=== PATIENT | male | born 1995 | race Two or more races ===

== ENCOUNTER 2017-01-28 22:18 | Emergency (ER) | payer BC ==
[2017-01-28] MEDS ORDERED: Albuterol/Ipratropium 3.0-0.5 MG/3 ML Neb Soln NEB ONE (22:38)
[2017-01-28] MEDS ORDERED: predniSONE 20 MG Tab PO ONE (22:38)
--- NOTE | 2017-01-28 22:41 | EDM.PDOC ---
ED HPI GENERAL MEDICAL PROBLEM - General Chief Complaint: Respiratory Problem Stated Complaint: ASTHMA Time Seen by Provider: 01/28/17 22:39 - History of Present Illness INITIAL COMMENTS - FREE TEXT/NARRATIVE: HISTORY AND PHYSICAL: History of present illness: Patient is 21-year-old male history of asthma she states shortness of breath and wheezing he denies chest pain or other concerns he states he's run out of medications but does have a prescription plan and getting inhaler tomorrow Review of systems: As per history of present illness and below otherwise all systems reviewed and negative. Past medical history: As per history of present illness and as reviewed below otherwise noncontributory. Surgical history: As per history of present illness and as reviewed below otherwise noncontributory. Social history: No reported history of drug or alcohol abuse. Family history: As per history of present illness and as reviewed below otherwise noncontributory. Physical exam: HEENT: Atraumatic, normocephalic, pupils reactive, negative for conjunctival pallor or scleral icterus, mucous membranes moist, throat clear, neck supple, nontender, trachea midline. Lungs: Diffuse end expiratory wheezing no rhonchi no crackle, breath sounds equal bilaterally, chest nontender. Heart: S1S2, regular, negative for clicks, rubs, or JVD. Abdomen: Soft, nondistended, nontender. Negative for masses or hepatosplenomegaly. Negative for costovertebral tenderness. Pelvis: Stable nontender. Genitourinary: Deferred. Rectal: Deferred. Extremities: Atraumatic, negative for cords or calf pain. Neurovascular unremarkable. Neuro: Awake, alert, oriented. Cranial nerves II through XII unremarkable. Cerebellum unremarkable. Motor and sensory unremarkable throughout. Exam nonfocal. Diagnostics: None Therapeutics: Albuterol ipratropium nebulizer prednisone 60 mg by mouth Impression: #1 asthma with acute exacerbation #2 medical noncompliance Definitive disposition and diagnosis as appropriate pending reevaluation and review of above. - Related Data Allergies Allergy/AdvReac Type Severity Reaction Status Date / Time No Known Allergies Allergy Verified 01/28/17 22:36 Home Meds: Home Meds Albuterol Sulfate [Proair Hfa] 8.5 gm IH DAILY 01/28/17 [History] ED ROS GENERAL - Review of Systems Review Of Systems: ROS reveals no pertinent complaints other than HPI. ED EXAM, GENERAL - Physical Exam Exam: See Below (See dictation) Course - Orders/Labs/Meds Orders: Active Orders 24 hr Category Date Time Status RT Aerosol Therapy [RC] ASDIRECTED Care 01/28/17 22:38 Active Albuterol/Ipratropium [DuoNeb 3.0-0.5 MG/3 ML] Med 01/28/17 22:38 Once 3 ml NEB ONETIME ONE predniSONE Med 01/28/17 22:38 Once 60 mg PO ONETIME ONE Medication Orders Albuterol/Ipratropium (Duoneb 3.0-0.5 Mg/3 Ml) 3 ml NEB ONETIME ONE Stop: 01/28/17 22:39 Prednisone (Prednisone) 60 mg PO ONETIME ONE Stop: 01/28/17 22:39 Meds: Medications Generic Name Dose Route Start Last Admin Trade Name Freq PRN Reason Stop Dose Admin Albuterol/Ipratropium 3 ml 01/28/17 22:38 Duoneb 3.0-0.5 Mg/3 Ml NEB 01/28/17 22:39 ONETIME ONE Prednisone 60 mg 01/28/17 22:38 Prednisone PO 01/28/17 22:39 ONETIME ONE Departure - Departure Time of Disposition: 22:41 Disposition: Home, Self-Care 01 Condition: good Clinical Impression: Exacerbation of asthma - Discharge Information Forms: ED Department Discharge Additional Instructions: The following information is given to patients seen in the emergency department who are being discharged to home. This information is to outline your options for follow-up care. We provide all patients seen in our emergency department with a follow-up referral. The need for follow-up, as well as the timing and circumstances, are variable depending upon the specifics of your emergency department visit. If you don't have a primary care physician on staff, we will provide you with a referral. We always advise you to contact your personal physician following an emergency department visit to inform them of the circumstance of the visit and for follow-up with them and/or the need for any referrals to a consulting specialist. The emergency department will also refer you to a specialist when appropriate. This referral assures that you have the opportunity for followup care with a specialist. All of these measure are taken in an effort to provide you with optimal care, which includes your followup. Under all circumstances we always encourage you to contact your private physician who remains a resource for coordinating your care. When calling for followup care, please make the office aware that this follow-up is from your recent emergency room visit. If for any reason you are refused follow-up, please contact the [facility] emergency department at and asked to speak to the emergency department charge nurse. Albuterol is prescribed Medrol as prescribed follow up primary medical doctor wanted to his return as needed as discussed - My Orders Last 24 Hours: My Active Orders 01/28/17 22:38 RT Aerosol Therapy [RC] ASDIRECTED Albuterol/Ipratropium [DuoNeb 3.0-0.5 MG/3 ML] 3 ml NEB ONETIME ONE predniSONE 60 mg PO ONETIME ONE - Assessment/Plan Last 24 Hours: My Active Orders 01/28/17 22:38 RT Aerosol Therapy [RC] ASDIRECTED Albuterol/Ipratropium [DuoNeb 3.0-0.5 MG/3 ML] 3 ml NEB ONETIME ONE predniSONE 60 mg PO ONETIME ONE
[2017-01-29 01:45] VITALS: BP 127/92
== END 2017-01-28 23:40 | disposition home or self-care (01) ==
LOC: MW.ED 22:18
DX: J45.909 Unspecified asthma, uncomplicated (principal); Z79.899 Other long term (current) drug therapy
CPT/HCPCS: 94664; 99284; A9270; 99283

== ENCOUNTER 2017-02-03 21:16 | Emergency (ER) | payer BC ==
[2017-02-03] MEDS ORDERED: Albuterol/Ipratropium 3.0-0.5 MG/3 ML Neb Soln NEB ONE (21:20)
[2017-02-03] MEDS ORDERED: predniSONE 10 MG Tab PO ONE (21:20)
--- NOTE | 2017-02-03 21:25 | EDM.PDOC ---
ED HPI GENERAL MEDICAL PROBLEM - General Chief Complaint: Respiratory Problem Stated Complaint: PT HAS ASTHMA Time Seen by Provider: 02/03/17 21:19 - History of Present Illness INITIAL COMMENTS - FREE TEXT/NARRATIVE: HISTORY AND PHYSICAL: History of present illness: This 21-year-old male history of asthma comes in with asthmatic exacerbation he was seen several days prior treated discharge he states his inhaler was discarded. He has been using the steroids that were prescribed he states the trigger relates to his work environment. No fever chills nausea, or other complaints Review of systems: As per history of present illness and below otherwise all systems reviewed and negative. Past medical history: As per history of present illness and as reviewed below otherwise noncontributory. Surgical history: As per history of present illness and as reviewed below otherwise noncontributory. Social history: No reported history of drug or alcohol abuse. Family history: As per history of present illness and as reviewed below otherwise noncontributory. Physical exam: HEENT: Atraumatic, normocephalic, pupils reactive, negative for conjunctival pallor or scleral icterus, mucous membranes moist, throat clear, neck supple, nontender, trachea midline. Lungs: Scattered instruments bruits noted bilaterally no rhonchi or crackles breath sounds equal bilaterally, chest nontender. Heart: S1S2, regular, negative for clicks, rubs, or JVD. Abdomen: Soft, nondistended, nontender. Negative for masses or hepatosplenomegaly. Negative for costovertebral tenderness. Pelvis: Stable nontender. Genitourinary: Deferred. Rectal: Deferred. Extremities: Atraumatic, negative for cords or calf pain. Neurovascular unremarkable. Neuro: Awake, alert, oriented. Cranial nerves II through XII unremarkable. Cerebellum unremarkable. Motor and sensory unremarkable throughout. Exam nonfocal. Diagnostics: None Therapeutics: #1 albuterol ipratropium nebulizer prednisone 60 mg by mouth Impression: #1 acute asthmatic exacerbation #2 medical noncompliance Definitive disposition and diagnosis as appropriate pending reevaluation and review of above. - Related Data Allergies Allergy/AdvReac Type Severity Reaction Status Date / Time basil Allergy Hives Verified 02/03/17 21:19 mushroom Allergy Hives Verified 02/03/17 21:19 peanuts Allergy Anaphylactic Uncoded 02/03/17 21:18 Shock Home Meds: Home Meds Albuterol Sulfate [Proair Hfa] 8.5 gm IH DAILY 01/28/17 [History] Past Medical History HEENT History: Reports: None Cardiovascular History: Reports: None Respiratory History: Reports: Asthma Gastrointestinal History: Reports: None Genitourinary History: Reports: None Musculoskeletal History: Reports: None Neurological History: Reports: None Psychiatric History: Reports: Anxiety Endocrine/Metabolic History: Reports: None Hematologic History: Reports: None Immunologic History: Reports: None Oncologic (Cancer) History: Reports: None Dermatologic History: Reports: None - Infectious Disease History Infectious Disease History: Reports: None - Past Surgical History Musculoskeletal Surgical History: Reports: Shoulder Surgery Social & Family History - Family History Family Medical History: Noncontributory - Tobacco Use Smoking Status *Q: Former Smoker Used Tobacco, but Quit: No Tobacco Use Comment: quit 2 yrs ago - Caffeine Use Caffeine Use: Reports: Energy Drinks - Recreational Drug Use Recreational Drug Use: No ED ROS GENERAL - Review of Systems Review Of Systems: ROS reveals no pertinent complaints other than HPI. ED EXAM, GENERAL - Physical Exam Exam: See Below (see dictation) Course - Vital Signs Last Recorded V/S: Last Vital Signs Temp 36.8 C 02/03/17 21:19 Pulse 85 02/03/17 21:19 Resp 16 02/03/17 21:19 BP 137/90 02/03/17 21:19 Pulse Ox 96 02/03/17 21:19 - Orders/Labs/Meds Orders: Active Orders 24 hr Category Date Time Status RT Aerosol Therapy [RC] ASDIRECTED Care 02/03/17 21:20 Ordered Meds: Medications Discontinued Medications Generic Name Dose Route Start Last Admin Trade Name Rangel PRN Reason Stop Dose Admin Albuterol/Ipratropium 3 ml 02/03/17 21:20 Duoneb 3.0-0.5 Mg/3 Ml NEB 02/03/17 21:21 ONETIME ONE Prednisone 60 mg 02/03/17 21:20 Prednisone PO 02/03/17 21:21 ONETIME ONE Departure - Departure Time of Disposition: 21:24 Disposition: Home, Self-Care 01 Condition: good Clinical Impression: Exacerbation of asthma - Discharge Information Forms: ED Department Discharge Additional Instructions: The following information is given to patients seen in the emergency department who are being discharged to home. This information is to outline your options for follow-up care. We provide all patients seen in our emergency department with a follow-up referral. The need for follow-up, as well as the timing and circumstances, are variable depending upon the specifics of your emergency department visit. If you don't have a primary care physician on staff, we will provide you with a referral. We always advise you to contact your personal physician following an emergency department visit to inform them of the circumstance of the visit and for follow-up with them and/or the need for any referrals to a consulting specialist. The emergency department will also refer you to a specialist when appropriate. This referral assures that you have the opportunity for followup care with a specialist. All of these measure are taken in an effort to provide you with optimal care, which includes your followup. Under all circumstances we always encourage you to contact your private physician who remains a resource for coordinating your care. When calling for followup care, please make the office aware that this follow-up is from your recent emergency room visit. If for any reason you are refused follow-up, please contact the [facility] emergency department at and asked to speak to the emergency department charge nurse. Albuterol Medrol as prescribed follow up primary medical doctor in 2 days return as needed as discussed - My Orders Last 24 Hours: My Active Orders 02/03/17 21:20 RT Aerosol Therapy [RC] ASDIRECTED - Assessment/Plan Last 24 Hours: My Active Orders 02/03/17 21:20 RT Aerosol Therapy [RC] ASDIRECTED
[2017-02-03 21:54] VITALS: BP 118/70
== END 2017-02-03 21:52 | disposition home or self-care (01) ==
LOC: MW.ED 21:16
DX: J45.901 Unspecified asthma with (acute) exacerbation (principal); Z79.899 Other long term (current) drug therapy; Z91.010 Allergy to peanuts; Z91.018 Allergy to other foods; Z98.890 Other specified postprocedural states; Z87.891 Personal history of nicotine dependence
CPT/HCPCS: 94664; 99284; A9270; 99283

== ENCOUNTER 2017-04-14 14:59 | Emergency (ER) | payer BC ==
[2017-04-14] MEDS ORDERED: Albuterol/Ipratropium 3.0-0.5 MG/3 ML Neb Soln NEB ONE (15:04)
--- NOTE | 2017-04-14 15:46 | CR ---
PA and lateral chest The gastric angles are sharp. The cardiac metastatic is normal and the lungs are clear. Impression: Normal chest
[2017-04-14] MEDS ORDERED: Levalbuterol HCl 0.63 MG/3 ML Neb NEB ONE (15:54)
[2017-04-14] MEDS ORDERED: methylPREDNISolone Sodium Succinate 125 MG/2 ML SDV IM ONE (15:55)
--- NOTE | 2017-04-14 16:19 | EDM.PDOC ---
ED HPI GENERAL MEDICAL PROBLEM - General Chief Complaint: Asthma Stated Complaint: SOB Time Seen by Provider: 04/14/17 15:14 Source of Information: Reports: Patient History Limitations: Reports: No Limitations - History of Present Illness INITIAL COMMENTS - FREE TEXT/NARRATIVE: History of present illness: [21-year-old male coming in complaining of acute asthma exacerbation. Patient is a poorly controlled asthmatic and has had difficulty establishing with a primary care provider due to issues with his insurance.] Review of systems: As per history of present illness and below otherwise all systems reviewed and negative. Past medical history: As per history of present illness and as reviewed below otherwise noncontributory. Surgical history: As per history of present illness and as reviewed below otherwise noncontributory. Social history: No reported history of drug or alcohol abuse. Family history: As per history of present illness and as reviewed below otherwise noncontributory. Physical exam: HEENT: Atraumatic, normocephalic, pupils reactive, negative for conjunctival pallor or scleral icterus, mucous membranes moist, throat clear, neck supple, nontender, trachea midline. Lungs: Decreased breath sounds throughout with inspiratory and expiratory wheezing as well as wheezing while conversing, chest nontender. Heart: S1S2, regular, negative for clicks, rubs, or JVD. Abdomen: Soft, nondistended, nontender. Negative for masses or hepatosplenomegaly. Negative for costovertebral tenderness. Pelvis: Stable nontender. Genitourinary: Deferred. Rectal: Deferred. Extremities: Atraumatic, negative for cords or calf pain. Neurovascular unremarkable. Neuro: Awake, alert, oriented. Cranial nerves II through XII unremarkable. Cerebellum unremarkable. Motor and sensory unremarkable throughout. Exam nonfocal. Diagnostics: [Chest x-ray] Therapeutics: [DuoNeb, Xopenex, Solu-Medrol] Impression: [Asthma exacerbation] Plan: [Refill inhaler follow up with PCP] Definitive disposition and diagnosis as appropriate pending reevaluation and review of above. - Related Data Allergies Allergy/AdvReac Type Severity Reaction Status Date / Time basil Allergy Hives Verified 02/03/17 21:19 mushroom Allergy Hives Verified 02/03/17 21:19 peanuts Allergy Anaphylactic Uncoded 02/03/17 21:18 Shock Home Meds: Home Meds Albuterol Sulfate [Proair Hfa] 8.5 gm IH DAILY 01/28/17 [History] Albuterol Sulfate [Proair Hfa] 2 puff IH Q6HR #1 hfa.[email or web address] 04/14/17 [Rx] Amoxicillin [IMW: Amoxicillin] 500 mg PO .THREE TIMES DAILY #30 cap 04/14/17 [Rx ] Inhaler, Assist Devices [Space Chamber Plus] 1 each ASDIRECTED #1 spacer 04/23 [Rx] methylPREDNISolone [Medrol] 4 mg PO DAILY #21 tab.ds.pk 04/14/17 [Rx] Past Medical History HEENT History: Reports: None Cardiovascular History: Reports: None Respiratory History: Reports: Asthma Gastrointestinal History: Reports: None Genitourinary History: Reports: None Musculoskeletal History: Reports: None Neurological History: Reports: None Psychiatric History: Reports: Anxiety Endocrine/Metabolic History: Reports: None Hematologic History: Reports: None Immunologic History: Reports: None Oncologic (Cancer) History: Reports: None Dermatologic History: Reports: None - Infectious Disease History Infectious Disease History: Reports: None - Past Surgical History Musculoskeletal Surgical History: Reports: Shoulder Surgery Social & Family History - Family History Family Medical History: Noncontributory - Tobacco Use Smoking Status *Q: Never Smoker Used Tobacco, but Quit: No Second Hand Smoke Exposure: No - Caffeine Use Caffeine Use: Reports: None - Recreational Drug Use Recreational Drug Use: No ED ROS GENERAL - Review of Systems Review Of Systems: See Below (See history of present illness) ED EXAM, GENERAL - Physical Exam Exam: See Below (See history of present illness) Course - Vital Signs Last Recorded V/S: Last Vital Signs Temp 37.1 C 04/14/17 16:46 Pulse 110 H 04/14/17 16:46 Resp 20 04/14/17 16:46 BP 125/77 04/14/17 16:46 Pulse Ox 97 04/14/17 15:07 - Orders/Labs/Meds Orders: Active Orders 24 hr Category Date Time Status RT Aerosol Therapy [RC] ASDIRECTED Care 04/14/17 15:04 Active RT Aerosol Therapy [RC] ASDIRECTED Care 04/14/17 15:55 Ordered RT Aerosol Therapy [RC] ASDIRECTED Care 04/14/17 16:37 Ordered Meds: Medications Discontinued Medications Generic Name Dose Route Start Last Admin Trade Name Freq PRN Reason Stop Dose Admin Albuterol 2.5 mg 04/14/17 16:37 04/14/17 16:48 Proventil Neb Soln NEB 04/14/17 16:38 2.5 mg ONETIME ONE Administration Albuterol/Ipratropium 3 ml 04/14/17 15:04 04/14/17 15:10 Duoneb 3.0-0.5 Mg/3 Ml NEB 04/14/17 15:05 3 ml ONETIME ONE Administration Levalbuterol HCl 0.63 mg 04/14/17 15:54 04/14/17 16:14 Xopenex NEB 04/14/17 15:55 0.63 mg ONETIME ONE Administration Methylprednisolone Sodium Succinate 125 mg 04/14/17 15:55 04/14/17 16:37 Solu-Medrol IM 04/14/17 15:56 125 mg ONETIME ONE Administration Departure - Departure Time of Disposition: 17:11 Disposition: Home, Self-Care 01 Condition: Good Clinical Impression: Exacerbation of asthma - Discharge Information Prescriptions: Albuterol Sulfate [Proair Hfa] 2 puff IH Q6HR #1 hfa.aer.ad Amoxicillin [IMW: Amoxicillin] 500 mg PO .THREE TIMES DAILY #30 cap Inhaler, Assist Devices [Space Chamber Plus] 1 each MC ASDIRECTED #1 spacer methylPREDNISolone [Medrol] 4 mg PO DAILY #21 tab.ds.pk Referrals: PCP,Unknown [Primary Care Provider] - Forms: ED Department Discharge Additional Instructions: The following information is given to patients seen in the emergency department who are being discharged to home. This information is to outline your options for follow-up care. We provide all patients seen in our emergency department with a follow-up referral. The need for follow-up, as well as the timing and circumstances, are variable depending upon the specifics of your emergency department visit. If you don't have a primary care physician on staff, we will provide you with a referral. We always advise you to contact your personal physician following an emergency department visit to inform them of the circumstance of the visit and for follow-up with them and/or the need for any referrals to a consulting specialist. The emergency department will also refer you to a specialist when appropriate. This referral assures that you have the opportunity for follow-up care with a specialist. All of these measure are taken in an effort to provide you with optimal care, which includes your follow-up. Under all circumstances we always encourage you to contact your private physician who remains a resource for coordinating your care. When calling for follow-up care, please make the office aware that this follow-up is from your recent emergency room visit. If for any reason you are refused follow-up, please contact the [facility] Emergency Department at and asked to speak to the emergency department charge nurse. Take medication as prescribed Follow-up with the PCP 1-2 days calling her insurance company as we discussed in regards to getting your care transferred and covered here locally Return to ED as needed as discussed - My Orders Last 24 Hours: My Active Orders 04/14/17 15:55 RT Aerosol Therapy [RC] ASDIRECTED 04/14/17 16:37 RT Aerosol Therapy [RC] ASDIRECTED - Assessment/Plan Last 24 Hours: My Active Orders 04/14/17 15:55 RT Aerosol Therapy [RC] ASDIRECTED 04/14/17 16:37 RT Aerosol Therapy [RC] ASDIRECTED
[2017-04-14] MEDS ORDERED: Albuterol 0.083% 2.5 MG/3 ML Neb Soln NEB ONE (16:37)
[2017-04-14 17:47] VITALS: BP 126/76
== END 2017-04-14 17:47 | disposition home or self-care (01) ==
LOC: MW.ED 14:59
DX: J45.901 Unspecified asthma with (acute) exacerbation (principal); F41.9 Anxiety disorder, unspecified; Z98.890 Other specified postprocedural states; Z79.899 Other long term (current) drug therapy; Z91.010 Allergy to peanuts; Z91.018 Allergy to other foods
CPT/HCPCS: 71020; 94640; 96372; 99285; J2930; 99284